=== PATIENT | female | born 1955 | race Hispanic/Latino ===

== ENCOUNTER 2018-10-29 06:08 | Day surgery (SDC) | payer MEDICARE ==
[2018-10-29] MEDS ORDERED: NACL 0.9% 1000 ML 1,000 ML IV SCH (07:00)
[2018-10-29] MEDS ORDERED: XYLOCAINE 2% INFILTRATI ONE (07:30)
[2018-10-29] MEDS ORDERED: DIPRIVAN 10 MG/ML IV ONE ×2 (07:31)
--- NOTE | 2018-10-29 07:49 | Anesthesia Day of Surgery ---
Anesthesia Day of Surgery - Day of Surgery Patient Examined: Yes Patient H&P Reviewed: Yes Patient is NPO: Yes Tru's Test: N/A
--- NOTE | 2018-10-29 07:55 | Anesthesia Consultation ---
Anesthesia Consult and Med Hx - Airway Anesthetic Teeth Evaluation: Good ROM Head & Neck: Adequate Mental/Hyoid Distance: Adequate Mallampati Class: Class II Intubation Access Assessment: Good - Pulmonary Exam CTA: Yes - Cardiac Exam Cardiac Exam: RRR - Pre-Operative Health Status ASA Pre-Surgery Classification: ASA2 Proposed Anesthetic Plan: MAC - Cardiovascular System Hx Cardia Arrhythmia: Yes (H?O A-Fib and SVT)
[2018-10-29] MEDS ORDERED: WATER FOR IRRIG STERILE IR ONE (08:27)
[2018-10-29] MEDS ORDERED: WATER FOR IRRIG STERILE ONE (08:27)
--- NOTE | 2018-10-29 09:21 | Procedure Note ---
Date of procedure: 10/29/18 Pre-op diagnosis: Dyspepsia/ H/O Colon Polyp Post-op diagnosis: other (Mild to Moderate, distal Erosive Esophagitis/ Gastritis/ No Colon Polyps noted/ Moderate, Left colon diverticular disease/ Mild to Moderate Internal Hemorrhoid) Procedure: EGd with Biopsy/ Colonoscopy [place] [facility] [place] WANG MCCOY Estimated blood loss: minimal Pathology: list Specimen disposition: to lab Condition: stable Disposition: same day (Treat with PPI and encourage fiber intake and follow up in 1 to 2 weeks ([phone]). Avoid aspirin and NSAID for 5 days.)
[2018-10-29 09:35] VITALS: BP 115/58
--- NOTE | 2018-10-29 10:14 | Operative Report ---
PROCEDURE: Esophagogastroduodenoscopy with biopsy. INDICATIONS: This is a 63-year-old white female, who has also been having some dyspeptic symptoms and GERD symptoms. EGD was done to assess for the dyspepsia and for any significant upper GI pathology. DESCRIPTION OF PROCEDURE: The procedure was done after getting informed consent with MAC anesthesia. Instrument was passed to the hypopharynx into the esophagus, which showed some mild to moderate distal erosive esophagitis. Biopsy was done from the distal esophagus. The stomach showed antral gastritis. No ulcers were noted in the straight or the retroverted view. Biopsy was done from the gastric antrum, gastric body, and angularis to rule out for H. pylori and atrophic gastritis. The pylorus is patent. The duodenum in the first and second portion appeared normal. There was minimal bleeding from the biopsy sites. No complications associated with the procedure. ASSESSMENT: Dyspepsia, mild to moderate distal erosive esophagitis, gastritis. Again, there was minimal bleeding from the biopsy sites. No complications associated with the procedure. The patient will be asked to follow up in the office in a week's time. If the patient is noted to be positive for H. pylori, the patient will be treated for that. The patient needs to be placed on PPI and a colonoscopy is to be done for further assessment for possible colon polyps. RNEdilia was in the room along with the GI lab team during the procedure. JOB# [id number] BRANDO/TALIA
--- NOTE | 2018-10-29 10:24 | Operative Report ---
PROCEDURE: Colonoscopy. INDICATIONS FOR PROCEDURE: This is a 63-year-old white female who is said to have a prior history of colon polyp. Last colonoscopy attempt was not successful and there is a question as to whether the patient may still have a remnant of a colon polyp or not. DESCRIPTION OF PROCEDURE: The procedure was done after getting informed consent with MAC anesthesia. Initial rectal examination was unremarkable. Instrument was passed through the rectum and passed through some degree of difficulty through the sigmoid and into the cecum, which was identified with ileocecal valve and the appendiceal orifice. Visualization was fair to good. The mucosa, it was especially fair in the distal colon. The mucosa was washed with copious amounts of water. No significant pathology was noted in the proximal colon involving the cecum, descending colon and also the transverse colon. There was moderate diverticular disease noted in the left colon, mainly in the sigmoid some of which were very deep and which made it difficult to pass the scope through the sigmoid; however, no polyps were also noted in the left colon and the rectum showed mild to moderate internal hemorrhoids on the retroverted view. There was no bleeding associated with the colonoscopy as no biopsies were done and no complications associated with the procedure. ASSESSMENT: History of colon polyps, none now, diverticular disease, which was moderately severe and some deep in the left colon, mild to moderate internal hemorrhoids. PLAN: Plan is to encourage the patient to take fiber supplements, treat the patient with PPI because of the upper GI findings of esophagitis and gastritis or the patient may even be treated with an H2 julian in case her insurance does not cover for PPI and have the patient avoid aspirin and aspirin-related products for the next few days and follow up in the office in 1-2 weeks' time. Edilia WALTON along with the GI team was in the room while the patient had the procedures done. JOB# [id number] BRANDO/TALIA
== END 2018-10-29 06:09 | disposition home or self-care (01) ==
LOC: GIO 06:08
DX: Z12.11 Encounter for screening for malignant neoplasm of colon (principal); K29.70 Gastritis, unspecified, without bleeding; K57.30 Diverticulosis of large intestine without perforation or abscess without bleeding; K64.8 Other hemorrhoids; K21.0 Gastro-esophageal reflux disease with esophagitis; I49.9 Cardiac arrhythmia, unspecified; I48.91 Unspecified atrial fibrillation; Z90.49 Acquired absence of other specified parts of digestive tract; Z90.710 Acquired absence of both cervix and uterus; Z98.890 Other specified postprocedural states; Z86.010 Personal history of colon polyps; Z88.0 Allergy status to penicillin; Z79.82 Long term (current) use of aspirin; Z79.899 Other long term (current) drug therapy; Z87.891 Personal history of nicotine dependence; Z88.8 Allergy status to other drugs, medicaments and biological substances
CPT/HCPCS: 43239; 88305; 88342; G0105; J2704; J7030